=== PATIENT | male | born 1940 | race Caucasian/White ===

== ENCOUNTER 2018-01-01 07:00 | Day surgery (SDC) | payer MEDICARE, OTHER ==
[2018-01-01] MEDS ORDERED: LIDOCAINE 2% INJ 100 MG/5 ML SDV (FOR ANES.) As Ordered (07:04)
[2018-01-01] MEDS ORDERED: PROPOFOL 500 MG/50 ML VIAL As Ordered (07:04)
[2018-01-01] MEDS: NS 1,000 ML IV (07:15)
[2018-01-01] MEDS ORDERED: ePHEDrine SULFATE 25 MG/5 ML(5MG/ML) SYRINGE As Ordered (08:27)
== END 2018-01-01 09:33 | disposition home or self-care (01) ==
LOC: M OPP 07:00
DX: Z12.11 Encounter for screening for malignant neoplasm of colon (principal); Z86.010 Personal history of colon polyps; D12.4 Benign neoplasm of descending colon; D12.2 Benign neoplasm of ascending colon; K57.30 Diverticulosis of large intestine without perforation or abscess without bleeding; K64.8 Other hemorrhoids; K64.0 First degree hemorrhoids; R12 Heartburn; K22.8 Other specified diseases of esophagus; Z98.890 Other specified postprocedural states; I10 Essential (primary) hypertension; K21.9 Gastro-esophageal reflux disease without esophagitis; Z85.46 Personal history of malignant neoplasm of prostate; Z85.51 Personal history of malignant neoplasm of bladder; Z92.3 Personal history of irradiation; J45.909 Unspecified asthma, uncomplicated; Z98.1 Arthrodesis status; Z79.82 Long term (current) use of aspirin; Z79.899 Other long term (current) drug therapy; Z80.1 Family history of malignant neoplasm of trachea, bronchus and lung; Z80.3 Family history of malignant neoplasm of breast; Z80.41 Family history of malignant neoplasm of ovary; Z87.891 Personal history of nicotine dependence
CPT/HCPCS: 45385

== ENCOUNTER 2018-12-07 06:30 | Emergency (ER) | payer MEDICARE, OTHER ==
[~2018-12-07] VITALS: Ht 175.3 cm; Wt 90.9 kg
[2018-12-07 06:30] VITALS: BP 148/85
[~2018-12-07 06:30] MED LIST: AMLO5TAB6 PO; ASPI81TA26 PO; ATOR1TAB19 PO; BIMA01SOL OU; LEVI20TA39 PO; LORA-243 PO; LOSA100T5 PO; OMEP40CA2 PO; QNAS80AE; QVAR40AE13 IN; SIMB1SUS OU
[2018-12-07] MEDS ORDERED: FLUORESCEIN OPHTH 1 MG STRIP OS ONE (07:15)
[2018-12-07] MEDS ORDERED: TETRACAINE 0.5% OPHTH SOLN 4ML OS ONE (07:15)
== END 2018-12-07 08:12 | disposition home or self-care (01) ==
LOC: M ED 06:30
DX: H10.32 Unspecified acute conjunctivitis, left eye (principal); H40.9 Unspecified glaucoma; H26.9 Unspecified cataract; Z98.41 Cataract extraction status, right eye; Z98.42 Cataract extraction status, left eye; I10 Essential (primary) hypertension; E78.5 Hyperlipidemia, unspecified; K44.9 Diaphragmatic hernia without obstruction or gangrene; Z85.51 Personal history of malignant neoplasm of bladder; Z79.899 Other long term (current) drug therapy

== ENCOUNTER → 2020-04-22 | Outpatient (CLI) | payer SELFPAY ==
[~2020-04-22] MED LIST changes: +AMLO1TAB24 PO; -AMLO5TAB6 PO; -OMEP40CA2 PO; +OMEP40CA97 PO
== END ==
LOC: M LABSMTC 09:55
PROVIDERS: ATTEND Pediatrics
DX: Z20.828 Contact with and (suspected) exposure to other viral communicable diseases (principal)

== ENCOUNTER → 2020-05-18 | Outpatient (REF) | payer MEDICARE, OTHER | LOC: M SMT 17:26 | PROVIDERS: ATTEND Urology | DX: C61 Malignant neoplasm of prostate (principal); C67.9 Malignant neoplasm of bladder, unspecified | CPT/HCPCS: 88108; G0463 ==

== ENCOUNTER → 2021-01-04 | Outpatient (CLI) | payer MEDICARE, OTHER ==
[~2021-01-04] MED LIST changes: +ISOVUE-370 76% 100ML VIAL As Ordered ONE; +OMEP40CA4 PO; -OMEP40CA97 PO
--- NOTE | 2021-01-04 10:53 | REP ---
INDICATION: CA LT URETER. COMPARISON: 10/22/2019. TECHNIQUE: CT abdomen and pelvis performed without IV contrast. CT abdomen and pelvis performed with IV contrast as well, following intravenous administration of 100 cc of Isovue 370. Sagittal, coronal and 3D MIP reconstruction images are performed. FINDINGS: Lung bases: Unremarkable. Liver: Normal Gallbladder: Unremarkable. Spleen: Normal. Adrenals: Normal. Pancreas: Normal. Kidneys: The left kidney is again noted to be atrophic. There is mild stable left hydronephrosis. Left ureter ectopically inserts on the urinary bladder superiorly. Small and large bowel: Unremarkable. Free fluid: None. Adenopathy: None. Appendix: Not inflamed. Osseous structures: There are degenerative changes of the spine without compression deformity. Pelvis: No mass. There is stable mild diffuse bladder wall thickening. IMPRESSION: Stable chronic findings as discussed in detail above. No acute pathology. <Electronically signed by Russell Garcia > 01/04/21 [id number]
== END ==
LOC: M RAD 09:48
DX: C66.2 Malignant neoplasm of left ureter (principal)
CPT/HCPCS: 74178; Q9967

== ENCOUNTER → 2021-05-05 | Outpatient (CLI) | payer MEDICARE, OTHER ==
[~2021-05-05] MED LIST changes: -ISOVUE-370 76% 100ML VIAL As Ordered ONE
--- NOTE | 2021-05-05 11:45 | REP ---
INDICATION: LOWER BACK PAIN. COMPARISON: 12/05/2006 TECHNIQUE: Five views FINDINGS: There is bilateral marginal osteophytosis which has increased from the prior exam. There is a grade 1 L4 upon L5 spondylolisthesis without evidence of spondylolysis. Degenerative facet joint changes are present bilaterally at every level particularly L4-5 and L5-S1. These have increased. There is disc space narrowing at every level which has increased. There is anterior lipping at every level which has increased. IMPRESSION: Increased chronic changes as described above. <Electronically signed by Scott Nguyen > 05/05/21 [id number]
== END ==
LOC: M WUC 10:40
PROVIDERS: ATTEND Internal Medicine
DX: M43.16 Spondylolisthesis, lumbar region (principal); M48.061 Spinal stenosis, lumbar region without neurogenic claudication; Z85.46 Personal history of malignant neoplasm of prostate; Z85.51 Personal history of malignant neoplasm of bladder

== ENCOUNTER → 2021-12-30 | Outpatient (CLI) | payer MEDICARE, OTHER ==
[~2021-12-30] MED LIST changes: +ISOVUE-370 76% 100ML VIAL As Ordered ONE
== END ==
LOC: M RAD 10:46
PROVIDERS: ATTEND Urology
DX: C66.2 Malignant neoplasm of left ureter (principal); K76.0 Fatty (change of) liver, not elsewhere classified; M48.061 Spinal stenosis, lumbar region without neurogenic claudication
CPT/HCPCS: 74178; Q9967

== ENCOUNTER → 2022-01-11 | Outpatient (CLI) | payer MEDICARE, OTHER ==
[~2022-01-11] MED LIST changes: -ISOVUE-370 76% 100ML VIAL As Ordered ONE
[2022-01-11 13:13] LABS: CREATININE FOR GFR 1.41 MG/DL (0.70-1.30); GLOMERULAR FILTRATION RATE 51.5 (>35)
== END ==
LOC: M WUC 09:01
PROVIDERS: ATTEND Ophthalmology
DX: Z79.899 Other long term (current) drug therapy (principal)

== ENCOUNTER → 2022-01-17 | Outpatient (CLI) | payer MEDICARE, OTHER ==
[~2022-01-17] MED LIST changes: +PROHANCE 279.3MG/ML 5ML VIAL ONE
== END ==
LOC: M PLAIMG 07:44
PROVIDERS: ATTEND Ophthalmology
DX: H46.9 Unspecified optic neuritis (principal); H53.40 Unspecified visual field defects
CPT/HCPCS: 70553; A9576

== ENCOUNTER → 2022-03-18 | Outpatient (CLI) | payer MEDICARE, OTHER ==
[~2022-03-18] MED LIST changes: -PROHANCE 279.3MG/ML 5ML VIAL ONE
[2022-03-18 18:27] LABS: CALCIUM LEVEL 9.1 MG/DL (8.8-10.2); CREATININE FOR GFR 1.27 MG/DL (0.70-1.30); GLOMERULAR FILTRATION RATE 58.1 (>35); POTASSIUM SERUM 4.2 MEQ/L (3.5-5.1)
== END ==
LOC: M LAB 16:43
PROVIDERS: ATTEND Ophthalmology
DX: I25.10 Atherosclerotic heart disease of native coronary artery without angina pectoris (principal)

== ENCOUNTER → 2022-03-23 | Outpatient (CLI) | payer MEDICARE, OTHER ==
[~2022-03-23] MED LIST changes: +ISOVUE-370 76% 100ML VIAL As Ordered ONE
== END ==
LOC: M RAD 13:22
PROVIDERS: ATTEND Ophthalmology
DX: I25.10 Atherosclerotic heart disease of native coronary artery without angina pectoris (principal); R09.89 Other specified symptoms and signs involving the circulatory and respiratory systems
CPT/HCPCS: 70496; 70498; 93880; Q9967

== ENCOUNTER → 2023-01-16 | Outpatient (CLI) | payer MEDICARE, OTHER ==
[~2023-01-16] MED LIST changes: -ISOVUE-370 76% 100ML VIAL As Ordered ONE
== END ==
LOC: M SOG 07:58
PROVIDERS: ATTEND Physician Assistant
DX: M19.032 Primary osteoarthritis, left wrist (principal); M19.042 Primary osteoarthritis, left hand

== ENCOUNTER → 2024-04-16 | Outpatient (CLI) | payer MEDICARE, OTHER ==
[~2024-04-16] MED LIST changes: +ISOVUE-370 76% 100ML VIAL As Ordered ONE
== END ==
LOC: M RAD 13:54
PROVIDERS: ATTEND Urology
DX: C67.9 Malignant neoplasm of bladder, unspecified (principal)
CPT/HCPCS: 74178; Q9967

== ENCOUNTER → 2024-12-20 | Outpatient (CLI) | payer MEDICARE, OTHER ==
[~2024-12-20] MED LIST changes: -ISOVUE-370 76% 100ML VIAL As Ordered ONE
== END ==
LOC: M PLAIMG 09:13
PROVIDERS: ATTEND Internal Medicine
DX: M54.50 Low back pain, unspecified (principal); M47.816 Spondylosis without myelopathy or radiculopathy, lumbar region; M48.061 Spinal stenosis, lumbar region without neurogenic claudication

== ENCOUNTER 2025-04-05 14:00 | Emergency (ER) | payer OTHER, MEDICARE ==
[2025-04-05] MEDS ORDERED: NORCO 5/325MG TABLET (HOME DOSE PACK) ONE (14:01)
[2025-04-05 14:10] VITALS: TEMP 98.3
[2025-04-05 14:38] LABS: BASO # 0.1 10^3/uL (0.0-0.2); BASO % 0.5 % (0.0-1.0); EOS # 0.2 10^3/uL (0.0-0.5); EOS % 1.8 % (0.0-3.0); LYMPH # 1.2 10^3/uL (1.5-5.0); LYMPH % 8.9 % (24.0-44.0); MONO # 1.1 10^3/uL (0.0-0.8); MONO % 8.1 % (2.0-8.0); NEUTROPHILS # 10.4 10^3/uL (1.5-8.5); NEUTROPHILS % 79.7 % (36.0-66.0); PLATELET COUNT, AUTOMATED 274 10^3/uL (150-450)
[2025-04-05] MEDS ORDERED: ISOVUE-370 76% 100 ML VIAL As Ordered ONE (14:43)
[2025-04-05 15:01] LABS: CK-MB VALUE MASS 14.0 NG/ML (<3.6); INR 0.93
[2025-04-05 15:03] LABS: ALT/SGPT 32.0 U/L (7.0-40); AST/SGOT 31.0 U/L (<34)
[2025-04-05 15:08] LABS: CPK CREATINE PHOSPHOKINASE 282.0 U/L (46-171); MB/CK RELATIVE INDEX 4.96 (< OR =4)
[2025-04-05] MEDS: MORPHINE 2 MG/ML 1 ML VIAL IV PRN (15:36)
[2025-04-05] MEDS: TETANUS/DIPHTH/ACEL. PERTUSSIS 0.5 ML SYR IM.IMMUN ONE (15:37)
[2025-04-05 16:25] VITALS: O2SAT 95
[2025-04-05 16:30] VITALS: BP 135/70
[2025-04-05] MEDS ORDERED: HYDR-3715 PO (17:46)
[2025-04-05] MEDS: NORCO 5/325MG TABLET (HOME DOSE PACK) PO ONE (18:12)
== END 2025-04-05 18:18 | disposition home or self-care (01) ==
LOC: EDBD 14:00 → M ED 14:00
DX: S20.20XA Contusion of thorax, unspecified, initial encounter (principal); V49.40XA Driver injured in collision with unspecified motor vehicles in traffic accident, initial encounter; I25.119 Atherosclerotic heart disease of native coronary artery with unspecified angina pectoris; M25.78 Osteophyte, vertebrae; M51.34 Other intervertebral disc degeneration, thoracic region; M51.360 Other intervertebral disc degeneration, lumbar region with discogenic back pain only; K21.9 Gastro-esophageal reflux disease without esophagitis; E78.5 Hyperlipidemia, unspecified; C67.9 Malignant neoplasm of bladder, unspecified; Z87.891 Personal history of nicotine dependence; Z79.02 Long term (current) use of antithrombotics/antiplatelets; Z79.899 Other long term (current) drug therapy; Y92.410 Unspecified street and highway as the place of occurrence of the external cause; Y93.89 Activity, other specified; Y99.9 Unspecified external cause status
CPT/HCPCS: 70450; 71045; 71260; 72125; 72128; 72131; 74177; 80047; 80076; 82150; 82550; 82553; 83605; 83690; 84484; 85025; 85610; 85730; 86850; 86900; 86901; 90471; 90715; 93041; 94760; 96372; 99285; Q9967

== ENCOUNTER → 2025-04-15 | Outpatient (CLI) | payer MEDICARE, OTHER ==
[~2025-04-15] MED LIST changes: +HYDR-3715 PO; +ISOVUE-370 76% 100 ML VIAL ONE
== END ==
LOC: M PLAIMG 10:32
PROVIDERS: ATTEND Urology
DX: C66.2 Malignant neoplasm of left ureter (principal)
CPT/HCPCS: 74178; Q9967